=== PATIENT | male | born 1970 | race Caucasian/White ===

== ENCOUNTER 2022-02-03 00:06 | Emergency (ER) | payer OTHER ==
[2022-02-03] MEDS ORDERED: Ondansetron ODT 4 MG TAB ONE (00:47)
[2022-02-03] MEDS ORDERED: Acetaminophen 500 MG TAB ONE (01:20)
[2022-02-03] MEDS ORDERED: Boostrix 0.5 ML (Tdap) VIAL ONE (01:20)
[2022-02-03] MEDS ORDERED: Metoclopramide HCl 10 MG/2 ML VIAL ONE (02:36)
[2022-02-03 02:52] LABS: #Basophils 0.1 10x3/uL (0.0-0.2); #Neutrophils 12.7 10x3/uL (1.5-8.4); %Basophils 0.5 % (0.0-2.0); %Eosinophils 0.2 % (0.0-6.0); %Monocytes 6.6 % (0.0-10.0); %Neutrophils 83.4 % (40.0-75.0); Hemoglobin 15.8 g/dL (13.5-17.5); Mean Corpuscular HGB CONC 35.6 g/dL (32.0-36.0); Mean Corpuscular Hemoglobin 28.8 pg (27.0-33.0); Mean Platelet Volume 10.8 fl (7.4-10.4); Platelet Count 210 10x3/uL (150-450); RBC Distribution Width 13.2 % (11.5-14.5); Red Blood Cell (RBC) Count 5.48 10x6/uL (4.32-5.72); White Blood Cell (WBC) Count 15.2 10x3/uL (3.5-10.5)
[2022-02-03 03:06] LABS: ALT (SGPT) 61 U/L (8-55); AST (SGOT) 36 U/L (5-34); Acetaminophen Less than 10.0 mcg/mL (10.0-30.0); Alcohol 15 mg/dL (Less than 10); Alkaline Phosphatase 50 U/L (40-110); Anion Gap 17 mmol/L (10-20); BUN (Urea Nitrogen) 11 mg/dL (8.4-25.7); Bilirubin, Total 0.5 mg/dL (0.2-1.2); Calc. Creatinine Clearance 0 mL/min (70-130); Calcium 9.9 mg/dL (7.8-10.44); Carbon Dioxide 24 mmol/L (22-29); Chloride 98 mmol/L (98-107); Globulin 2.8 g/dL (2.4-3.5); Glucose 138 mg/dL (70-105); Potassium 3.6 mmol/L (3.5-5.1); Protein, Total 7.8 g/dL (6.0-8.3); Salicylate Less than 8.0 mg/dL (15.0-30.0); Sodium 135 mmol/L (136-145)
[2022-02-03 03:41] LABS: SARS-CoV-2 NAA Rapid Test Not Detected (NotDetected)
[2022-02-03 03:54] LABS: Amphetamine Not Detected (NotDetected); Barbiturates Screen Not Detected (NotDetected); Benzodiazepine Screen Not Detected (NotDetected); Cocaine Metabolite Screen Not Detected (NotDetected); Methadone Not Detected (NotDetected); Methamphetamine Not Detected (NotDetected); Opiate Screen Not Detected (NotDetected); Oxycodone Screen Not Detected (NotDetected); Phencyclidine (PCP) Not Detected (NotDetected); THC/Cannabinoid Screen Not Detected (NotDetected); Tricyclic Screen Not Detected (NotDetected)
[2022-02-03] MEDS ORDERED: hydrALAZINE 20 MG/ML VIAL ONE (04:23)
[2022-02-03] MEDS ORDERED: Morphine 4 MG/ML VIAL ONE (04:51)
== END 2022-02-03 06:01 | disposition short-term general hospital (02) ==
LOC: CSHERS 00:06
DX: S06.6X0A Traumatic subarachnoid hemorrhage without loss of consciousness, initial encounter (principal); S50.01XA Contusion of right elbow, initial encounter; I10 Essential (primary) hypertension; Z20.822 Contact with and (suspected) exposure to COVID-19; Y04.0XXA Assault by unarmed brawl or fight, initial encounter; Y92.89 Other specified places as the place of occurrence of the external cause
CPT/HCPCS: 70450; 72125; 80053; 80306; 80307; 85025; 90471; 90715; 93005; 96374; 96375; J0360; J2270; J2765; Q0162; U0002